=== PATIENT | male | born 1995 | race African-American/Black ===

== ENCOUNTER 2017-04-26 15:31 | Inpatient (IN) ==
[2017-04-26 16:19] LABS: BE -22.1 mmoll (-3.0-3.0); BLOOD TYPE ARTERIAL; METHB 1.3 % (0.0-1.5); O2(CT) 25.4 mL/dL (15.0-23.0); PO2(98.6) 117 mmHg (60-100); SAMPLE BLOOD; SAO2 98.6 % (95.0-100.0); THB 18.8 g/dL (11.5-17.4)
[2017-04-26 16:22] LABS: MANUAL DIFF NEEDED? NO
[2017-04-26] MEDS ORDERED: NS 1,000 ML IV ONE (16:27)
[2017-04-26] MEDS ORDERED: HUMULIN R (PARKWAY) IV ONE (16:27)
[2017-04-26] MEDS ORDERED: NS 2,000 ML ONE (16:28)
[2017-04-26 16:29] LABS: URINE CULTURE PL NEEDED? NO
[2017-04-26 16:32] LABS: BASO% 0.1 % (0.0-0.8); HEMATOCRIT 53.7 % (42.0-52.0); HEMOGLOBIN 18.7 g/dL (14.0-18.0); IMM GRAN% 0.7 % (0.0-0.5); LYMPH# 2.45 X1000 (1.2-3.4); LYMPH% 16.1 % (20.5-51.1); MCHC 34.8 g/dL (33-37); MCV 83.4 FL (81-99); MONO# 0.82 X1000 (0.11-0.59); MONO% 5.4 % (1.7-9.3); NEUT% 77.7 % (42.2-75.2); PLT 390 X1000 (130-400); RBC 6.44 XMIL (4.7-6.1)
[2017-04-26 16:41] LABS: BILIRUBIN URINE NEGATIVE (NEGATIVE); BLOOD URINE 3+ (NEGATIVE); CLARITY CLEAR (CLEAR); COLOR YELLOW; LEUKOCYTES URINE NEGATIVE (NEGATIVE); NITRITE URINE NEGATIVE (NEGATIVE); PROTEIN URINE 2+(100 mg/dL) mg/dL (NEGATIVE); UROBILINOGEN URINE NORMAL
[2017-04-26 16:43] LABS: DRAW SITE R RADIAL
[2017-04-26 16:44] LABS: ALLEN TEST YES; MODALITY ROOM AIR
[2017-04-26 16:46] LABS: PCO2(98.6) 15 mmHg (35-45); pH(98.6) 7.11 (7.35-7.45)
[2017-04-26 16:51] LABS: URINE CAST NONE SEEN /LPF; URINE CRYSTAL NONE SEEN /HPF; URINE EPITHELIAL CELLS <10 /HPF (<10); URINE SOURCE CLEAN CATCH; URINE WBC <10 /HPF (<10)
--- NOTE | 2017-04-26 17:32 | PROVIDER DOCUMENTATION ---
This chart was entered by So Cedillo Scribe, acting as scribe for Osorio Nelson MD. HPI-Abdominal Pain/GI Problem - General Chief Complaint: Abdominal Pain Stated Complaint: N/V Time Seen by Provider: 04/26/17 15:54 Source: patient Allergies/Adverse Reactions: Patient Allergies Allergy/AdvReac Type Severity Reaction Status Date / Time No Known Allergies Allergy Verified 04/26/17 15:40 Home Medications: Home Medication List Medication Instructions Recorded Confirmed Last Taken Type NK [No Home Medications] 04/26/17 04/26/17 Unknown History - History of Present Illness-ABD Nature of Presenting Problems: Pt is 21 y/o M presents to the ED with abdominal pain with N and V. Pt states symptoms have been present for 5 days. Pt states pain started in the upper abdomen then moved to mid abdomen and then stopped in the lower abdomen. Pt denies D. Pt states last BM was 2 days ago. Abdominal Pain Onset Location: reports: RLQ, LLQ Quality of Pain: reports: aching Severity in ED: reports: moderate Onset/Duration: reports: 5 days ago Timing: reports: still present Activities at Onset: reports: light activity Exposure to sick contacts?: No Modifying Factors: improves with: nothing Associated Symptoms: reports: nausea, vomiting. denies: anxiety, arm pain, back /neck pain, chest pain, constipation, cough, diaphoresis, diarrhea, dizziness, EENT symptoms, fatigue, fever/chills, genitourinary problems, headaches, heartburn, joint pain, loss of appetite, malaise, muscle aches, sinus congestion /drainage, rash, seizure, shortness of breath, sensory/motor loss, pain with inspiration, swelling/mass in abdomen, syncope, weakness, trouble walking Last BM: 2 days ago Dark Stools Present?: reports: none noticed Rectal Bleeding: reports: none Emesis Description: reports: clear Bruising or Bleeding Gums?: No Similar Symptoms Previously?: Yes Recently seen or treated by another doctor?: No Review of Systems - Adult - REVIEW OF SYSTEMS - ADULT Constitutional: reports: no symptoms reported Eyes: reports: no symptoms reported Ears, Nose, Mouth & Throat: reports: no symptoms reported Cardiovascular: reports: no symptoms reported Respiratory: reports: no symptoms reported Gastrointestinal: reports: abdominal pain (RLQ and LLQ), nausea, vomiting. denies: diarrhea Genitourinary: reports: no symptoms reported Musculoskeletal: reports: no symptoms reported Integumentary: reports: no symptoms reported Neurological: reports: no symptoms reported Psychiatric: reports: no symptoms reported Endocrine: reports: no symptoms reported Hematologic/Lymphatic: reports: no symptoms reported Allergic/Immunologic: reports: no symptoms reported All Other Systems: Reviewed and Negative Past History - Adult - PAST MEDICAL HISTORY-ADULT Review of Records: reports: Nursing Assessment Review, Medications Reviewed, Social history reviewed & non-contributory. Major Childhood Illnesses: reports: denies history Cardiovascular: reports: denies history Respiratory: reports: asthma Gastrointestinal: reports: denies history Obstetrical/Gynecological: reports: denies history Genitourinary: reports: denies history Musculoskeletal: reports: denies history Neurological: reports: denies history Endocrine/Immune: reports: denies history Other Conditions: reports: denies history - PRIOR SURGERIES/PROCEDURES Surgical/Procedure History: reports: reviewed, not pertinent - IMMUNIZATION STATUS Childhood Immunizations: See Nurse Assessment Flu Vaccine: See Nurse Assessment - FAMILY HISTORY Family History: reviewed, not pertinent - SOCIAL HISTORY Smoking: denies Substance Use: denies Living Situation: family Physical Exam-General - PHYSICAL EXAM-ADULT Initial Vital Signs Reviewed: Yes - CONSTITUTIONAL General Appearance: alert, mild distress - EYES Eyes: PERRL/EOMI, pink conjunctivae - HEAD, EARS, NOSE, MOUTH & THROAT HENMT: normocephalic/atraumatic, other (dry mucous membranes). negative: moist mucous membranes - NECK Neck: non-tender, full range of motion, supple, normal inspection - RESPIRATORY Respiratory: chest non-tender, lungs clear, normal breath sounds - CARDIOVASCULAR Cardiovascular: normal peripheral pulses, tachycardia - GASTROINTESTINAL (ABDOMEN) Abdominal Exam: normal bowel sounds, non tender, soft - LYMPHATIC Lymphatic: no adenopathy - MUSCULOSKELETAL Back Exam: normal inspection, no CVA tenderness, no vertebral tenderness Extremity: normal range of motion, non-tender - SKIN Integumentary: normal color, normal turgor, warm/dry - NEUROLOGIC Neurologic: grossly normal - PSYCHIATRIC Psych/Mental Status: normal mood/affect, oriented x 3 Progress - PLAN OF CARE/RESULTS Progress/Plan/Lab Results: Vital Signs - 8 hr 04/26/17 15:37 04/26/17 15:43 Temperature 97.2 F L Pulse Rate 143 H Pulse Rate [Sitting] 146 H Pulse Rate [Supine] 139 H Respiratory Rate 22 Blood Pressure 153/87 Blood Pressure [Supine] 151/94 O2 Sat by Pulse Oximetry 97 Orders Category Date Time Status Saline Loc DIRECTED Care 04/26/17 15:50 Active NPO Diet 04/26/17 15:50 Active ABG [RESP] Routine Lab 04/26/17 15:50 Ordered AMYLASE [CHEM] Stat Lab 04/26/17 15:50 Ordered CBC WITH ELECTRONIC DIFF [HEME] Stat Lab 04/26/17 15:50 Ordered COMPREHENSIVE METABOLIC PANEL [CHEM] Stat Lab 04/26/17 15:50 Ordered LIPASE [CHEM] Stat Lab 04/26/17 15:[address] W/POSS RFLX CULT [URINALYSIS] Stat Lab 04/26/17 15:50 Uncollected Result Diagrams: 04/26/17 16:16 - CONSULTS/PCP/HOSPITALIST Notification #1 *Consult/PCP/Hospitalist*: Dr. El Time Discussed: 16:25 Reason/Comments: Dr. Nelson consults with Dr. El about admit of Pt Consult Disposition: Admit Departure - Departure Date of Disposition Decision: 04/26/17 Time of Disposition Decision: 16:25 DIAGNOSIS: Diabetes mellitus, new onset DKA (diabetic ketoacidoses) Qualifiers: Diabetes mellitus type: other specified (including MATTHIEU) Diabetes mellitus complication detail: without coma Qualified Code(s): E13.10 - Other specified diabetes mellitus with ketoacidosis without coma Disposition: ADMITTED INPATIENT 09 Certified Medical Emergency: Emergent Condition: Stable Referrals and Follow-Ups: Me César`jeff Brown DO [Primary Care Provider] - - Critical Care Note This patient required my direct & personal management of CC.: No This chart was documented by the indicated scribe, (So Cedillo Scribe) and accurately reflects the services I performed and decisions made by me, Osorio Nelson MD, as attested by the provider's signature.
[2017-04-26 17:34] LABS: ALBUMIN 4.9 g/dL (3.5-5.0); CALCIUM 9.4 mg/dL (8.8-10.2); TOTAL BILIRUBIN 0.3 mg/dL (0.20-1.00); TOTAL PROTEIN 9.2 g/dL (6.3-8.3)
[2017-04-26] MEDS ORDERED: TYLENOL PO PRN (17:58)
[2017-04-26] MEDS ORDERED: MAGNESIUM SULFATE 2 GM/S.W.I. 2 GM/50 ML IVPB IV PRN (18:01)
[2017-04-26] MEDS ORDERED: SODIUM PHOSPHATE 30 MMOL in D5W 250 ML IV PRN (18:01)
[2017-04-26 18:21] LABS: HEMOGLOBIN A1C 11.6 % (4.8-6.0)
[2017-04-26] MEDS: NS 1,000 ML IV SCH ×3 (18:21→21:18)
[2017-04-26] MEDS: HUMULIN R 100 UNIT in NS 99 ML IV SCH (18:50)
[2017-04-26 21:13] LABS: BE -20.6 mmoll (-3.0-3.0); BLOOD TYPE ARTERIAL; DRAW SITE L RADIAL; METHB 1.1 % (0.0-1.5); O2(CT) 21.5 mL/dL (15.0-23.0); PO2(98.6) 114 mmHg (60-100); SAMPLE BLOOD; SAO2 98.9 % (95.0-100.0); THB 15.8 g/dL (11.5-17.4)
[2017-04-26] MEDS ORDERED: D50W SYRINGE IV PRN (21:13)
[2017-04-26] MEDS: ZOFRAN IV PRN (21:17)
[2017-04-26 21:49] LABS: AGAP 29; BUN 12 mg/dL (8-22); CHLORIDE 104 mmol/L (98-107); COSMO 291; MAGNESIUM 2.2 mg/dL (1.5-2.7); POTASSIUM 4.5 mmol/L (3.5-5.1); SODIUM 139 mmol/L (136-145); TCO2 6 mmol/L (25-35)
[2017-04-26] MEDS: POTASSIUM CHLORIDE 20 MEQ/SWI 20 MEQ/100 ML IVPB IV PRN (22:09)
[2017-04-26 22:11] LABS: ALLEN TEST YES; MODALITY ROOM AIR; PCO2(98.6) 17 mmHg (35-45); pH(98.6) 7.15 (7.35-7.45)
[2017-04-27 00:49] LABS: BLOOD TYPE ARTERIAL; DRAW SITE L RADIAL; METHB 1.3 % (0.0-1.5); O2(CT) 22.9 mL/dL (15.0-23.0); PO2(98.6) 118 mmHg (60-100); SAMPLE BLOOD; SAO2 98.7 % (95.0-100.0); THB 16.9 g/dL (11.5-17.4)
[2017-04-27 00:52] LABS: ALLEN TEST YES; MODALITY ROOM AIR; PCO2(98.6) 19 mmHg (35-45); pH(98.6) 7.15 (7.35-7.45)
[2017-04-27 02:14] LABS: AGAP 27; BUN 10 mg/dL (8-22); CALCIUM 8.3 mg/dL (8.8-10.2); CHLORIDE 104 mmol/L (98-107); COSMO 287; MAGNESIUM 2.3 mg/dL (1.5-2.7); POTASSIUM 4.3 mmol/L (3.5-5.1); SODIUM 139 mmol/L (136-145); TCO2 8 mmol/L (25-35)
[2017-04-27] MEDS: POTASSIUM CHLORIDE 20 MEQ/SWI 20 MEQ/100 ML IVPB IV PRN ×2 (03:10→23:00)
[2017-04-27 04:49] LABS: BLOOD TYPE ARTERIAL; DRAW SITE R RADIAL; METHB 1.2 % (0.0-1.5); O2(CT) 22.7 mL/dL (15.0-23.0); PCO2(98.6) 22 mmHg (35-45); PO2(98.6) 123 mmHg (60-100); SAMPLE BLOOD; SAO2 98.8 % (95.0-100.0); THB 16.7 g/dL (11.5-17.4)
[2017-04-27 04:56] LABS: ALLEN TEST YES; MODALITY ROOM AIR; pH(98.6) 7.18 (7.35-7.45)
[2017-04-27] MEDS: NS 1,000 ML IV SCH ×3 (05:54→21:27)
[2017-04-27] MEDS: ZOFRAN IV PRN ×2 (06:46→21:20)
[2017-04-27 07:35] LABS: AGAP 26; BUN 9 mg/dL (8-22); CHLORIDE 106 mmol/L (98-107); COSMO 290; MAGNESIUM 2.2 mg/dL (1.5-2.7); POTASSIUM 4.3 mmol/L (3.5-5.1); SODIUM 141 mmol/L (136-145); TCO2 9 mmol/L (25-35)
--- NOTE | 2017-04-27 08:34 | PROGRESS NOTE ---
DATE: 04/27/2017 SUBJECTIVE: The patient notes that he actually slept better last night. Notes that he felt a little bit better this morning than he was yesterday. PHYSICAL EXAMINATION: Vital Signs: Temperature 98, pulse 94, respiratory rate 17, BP 141/68, saturation 97% on room air. General: Patient is awake, alert. He is in no respiratory distress. Pleasant to talk with. Neck: Supple. CV: Regular rate. Chest: Clear. Abdomen: Soft. Extremities: Moves all extremities. Neurologic: No changes. LABS: PH 7.18. Carbon dioxide is 8 which is slightly improved from his 6 when he was admitted to the hospital. Glucose is down to 278. ASSESSMENT: 1. Diabetic ketoacidosis with a new onset diabetic. 2. Nausea and vomiting. 3. Leukocytosis. PLAN: We will continue insulin drip. Continue to follow. Keep him NPO. Further orders as needed. TIME SPENT: Forty minutes were spent in total care. cc: Carter El MD
[2017-04-27 09:37] LABS: AGAP 24; BUN 10 mg/dL (8-22); CALCIUM 8.8 mg/dL (8.8-10.2); CHLORIDE 105 mmol/L (98-107); COSMO 289; MAGNESIUM 2.2 mg/dL (1.5-2.7); POTASSIUM 4.1 mmol/L (3.5-5.1); SODIUM 140 mmol/L (136-145); TCO2 11 mmol/L (25-35)
[2017-04-27 12:06] LABS: BLOOD TYPE ARTERIAL; DRAW SITE R RADIAL; METHB 1.5 % (0.0-1.5); O2(CT) 21.5 mL/dL (15.0-23.0); PCO2(98.6) 25 mmHg (35-45); PO2(98.6) 106 mmHg (60-100); SAMPLE BLOOD; SAO2 98.2 % (95.0-100.0); pH(98.6) 7.21 (7.35-7.45)
[2017-04-27 12:10] LABS: MODALITY ROOM AIR
[2017-04-27 12:11] LABS: ALLEN TEST YES
[2017-04-27 13:30] LABS: AGAP 21; BUN 9 mg/dL (8-22); CHLORIDE 106 mmol/L (98-107); COSMO 287; MAGNESIUM 2.2 mg/dL (1.5-2.7); POTASSIUM 3.9 mmol/L (3.5-5.1); SODIUM 140 mmol/L (136-145); TCO2 13 mmol/L (25-35)
[2017-04-27 16:17] LABS: BE -16.3 mmoll (-3.0-3.0); BLOOD TYPE ARTERIAL; DRAW SITE R RADIAL; METHB 1.5 % (0.0-1.5); O2(CT) 20.8 mL/dL (15.0-23.0); PCO2(98.6) 24 mmHg (35-45); PO2(98.6) 97 mmHg (60-100); SAMPLE BLOOD; SAO2 98.1 % (95.0-100.0); THB 15.5 g/dL (11.5-17.4); pH(98.6) 7.21 (7.35-7.45)
[2017-04-27 16:21] LABS: ALLEN TEST YES; MODALITY ROOM AIR
[2017-04-27 18:29] LABS: AGAP 24; BUN 9 mg/dL (8-22); CALCIUM 9.3 mg/dL (8.8-10.2); CHLORIDE 101 mmol/L (98-107); COSMO 281; MAGNESIUM 2.1 mg/dL (1.5-2.7); POTASSIUM 3.6 mmol/L (3.5-5.1); SODIUM 137 mmol/L (136-145); TCO2 13 mmol/L (25-35)
[2017-04-27] MEDS: HUMULIN R 100 UNIT in NS 99 ML IV SCH (19:00)
--- NOTE | 2017-04-27 19:31 | HISTORY AND PHYSICAL ---
CHIEF COMPLAINT: Right lower quadrant pain with nausea and vomiting. HISTORY OF PRESENT ILLNESS: This is a 21-year-old gentleman who presented to the emergency room complaining of right lower quadrant pain, nausea and vomiting. He denied any fever or chills, diarrhea or constipation. He was found to have a white count of 15.2 with a glucose of 337 and a hemoglobin A1c of 11.6. He was given a liter of saline bolus, 10 units of insulin IV. He was started on an insulin drip per DKA protocol and admitted to ICU for further evaluation and treatment. PAST MEDICAL HISTORY: Asthma. PAST SURGICAL HISTORY: Denies. SOCIAL HISTORY: Denies alcohol, tobacco, or illicit drug use. ALLERGIES: No known drug allergies. HOME MEDICATIONS: None. REVIEW OF SYSTEMS: A 14-point review of systems is discussed with the patient with pertinent positives stated in HPI. He denied chest pain, palpitations, dizziness, syncope, shortness of breath, PND, orthopnea, diarrhea, constipation, black or bloody vomitus, black or bloody stools, hematuria, dysuria, frequency, urgency. PHYSICAL EXAMINATION: GENERAL: This is a 21-year-old male who is sitting in the bed in no distress. VITAL SIGNS: Blood pressure is 142/68 with a heart rate of 92, respirations are 17, temperature is 98.7 degrees with oxygen saturations of 98-100%. HEENT: Head is normocephalic, atraumatic. Pupils are equal, round, react to light. EOMs are intact. Sclerae are anicteric. Mucous membranes are dry. NECK: Supple. Trachea midline. CARDIOVASCULAR: Regular rate and rhythm. S1 and S2 appreciated. PULMONARY: Breath sounds are clear with no increased work of breathing noted. GASTROINTESTINAL: Abdomen is soft, nontender, nondistended with bowel sounds in all 4 quadrants. BACK: No CVAT. No spine tenderness. MUSCULOSKELETAL: Good range of motion of joints. EXTREMITIES: No clubbing, cyanosis, or edema. Calves are nontender. Pulses are palpable x4. NEUROLOGIC: He is alert and oriented x3 with cranial nerves 2-12 grossly intact. DIAGNOSTICS: WBC is 15.2 with hemoglobin 18.7, hematocrit 53.7, and platelets of 390,000. Sodium is 139, potassium 4.5, CO2 is 6 with a BUN of 12, creatinine 1.3 and a glucose of 337. Hemoglobin A1c is 11.6. ASSESSMENT AND PLAN: 1. Diabetic ketoacidosis, new onset diabetes. 2. Nausea and vomiting. 3. Leukocytosis. Patient will be admitted to ICU, placed on DKA protocol. Blood cultures were obtained. Will give him sips of clear liquids and ice chips. Continue to follow. Further treatments pending hospital course. Dictated by YARITZA Damian for Carter El MD cc: YARITZA Damian MD
[2017-04-27 21:06] LABS: BE -13.1 mmoll (-3.0-3.0); BLOOD TYPE ARTERIAL; DRAW SITE L RADIAL; METHB 1.5 % (0.0-1.5); O2(CT) 20.7 mL/dL (15.0-23.0); PCO2(98.6) 25 mmHg (35-45); PO2(98.6) 95 mmHg (60-100); SAMPLE BLOOD; SAO2 98.2 % (95.0-100.0); THB 15.4 g/dL (11.5-17.4); pH(98.6) 7.28 (7.35-7.45)
[2017-04-27 22:01] LABS: AGAP 23; BUN 9 mg/dL (8-22); CALCIUM 9.5 mg/dL (8.8-10.2); CHLORIDE 101 mmol/L (98-107); COSMO 284; POTASSIUM 3.6 mmol/L (3.5-5.1); SODIUM 136 mmol/L (136-145); TCO2 12 mmol/L (25-35)
[2017-04-27 22:31] LABS: ALLEN TEST YES; MODALITY ROOM AIR
[2017-04-28 01:09] LABS: BE -12.6 mmoll (-3.0-3.0); BLOOD TYPE ARTERIAL; DRAW SITE L RADIAL; METHB 1.3 % (0.0-1.5); O2(CT) 20.8 mL/dL (15.0-23.0); PCO2(98.6) 25 mmHg (35-45); PO2(98.6) 76 mmHg (60-100); SAMPLE BLOOD; SAO2 97.6 % (95.0-100.0); THB 15.6 g/dL (11.5-17.4); pH(98.6) 7.29 (7.35-7.45)
[2017-04-28 01:11] LABS: ALLEN TEST YES; MODALITY ROOM AIR
[2017-04-28 02:36] LABS: AGAP 23; BUN 8 mg/dL (8-22); CALCIUM 9.2 mg/dL (8.8-10.2); CHLORIDE 100 mmol/L (98-107); COSMO 278; POTASSIUM 3.8 mmol/L (3.5-5.1); SODIUM 135 mmol/L (136-145); TCO2 13 mmol/L (25-35)
[2017-04-28] MEDS: POTASSIUM CHLORIDE 20 MEQ/SWI 20 MEQ/100 ML IVPB IV PRN ×6 (02:45→23:00)
[2017-04-28] MEDS: ZOFRAN IV PRN ×3 (03:00→19:35)
[2017-04-28 05:11] LABS: BE -13.1 mmoll (-3.0-3.0); BLOOD TYPE ARTERIAL; DRAW SITE L RADIAL; METHB 1.2 % (0.0-1.5); O2(CT) 20.8 mL/dL (15.0-23.0); PCO2(98.6) 26 mmHg (35-45); PO2(98.6) 99 mmHg (60-100); SAMPLE BLOOD; SAO2 98.8 % (95.0-100.0); THB 15.4 g/dL (11.5-17.4); pH(98.6) 7.27 (7.35-7.45)
[2017-04-28 05:13] LABS: ALLEN TEST YES; MODALITY ROOM AIR
[2017-04-28] MEDS: NS 1,000 ML IV SCH ×3 (05:55→23:10)
[2017-04-28 06:05] LABS: AGAP 21; BUN 8 mg/dL (8-22); CALCIUM 9.3 mg/dL (8.8-10.2); CHLORIDE 99 mmol/L (98-107); COSMO 274; MAGNESIUM 1.9 mg/dL (1.5-2.7); POTASSIUM 3.5 mmol/L (3.5-5.1); SODIUM 133 mmol/L (136-145); TCO2 14 mmol/L (25-35)
--- NOTE | 2017-04-28 08:33 | PROGRESS NOTE ---
DATE: 04/28/2017 SUBJECTIVE: The patient has episodes of nausea after attempting to drink yesterday. He notes that he is feeling better this morning, although still slightly nauseated. Blood sugars have remained relatively stable in the 200s. His pH on his ABG is still 7.27. OBJECTIVE: Vital Signs: Temperature 97, pulse 90, respiratory 18, BP 140/86, satting 99% on room air. General: Patient is awake, alert. He is in no respiratory distress. He is lying in the bed, still appears nauseated. HEENT: Normocephalic, atraumatic. Neck: Supple. CV: Regular rate. Chest: Clear. Abdomen: Soft, obese. Extremities: Moves all extremities. Neurologic: No changes. Skin: Warm and dry. No rashes. LABS: The pH is improved at 7.27. Sodium 135. Carbon dioxide has continued to improve, currently is 14. Glucose remains around 230. ASSESSMENT: Diabetic ketoacidosis. Will continue on insulin drip. His blood cultures have been negative. We will check a chest x-ray today for completeness. He is still moderately acidotic; however, is improving. His carbon dioxide was actually 6 on admission. We will continue to keep on nothing by mouth until around 16 or 18. Will allow ice chips on an as-needed basis. Further orders as needed. cc: Carter El MD
[2017-04-28 08:56] LABS: AGAP 22; BUN 8 mg/dL (8-22); CHLORIDE 102 mmol/L (98-107); COSMO 281; MAGNESIUM 1.9 mg/dL (1.5-2.7); POTASSIUM 3.7 mmol/L (3.5-5.1); SODIUM 137 mmol/L (136-145); TCO2 13 mmol/L (25-35)
[2017-04-28 09:32] LABS: BE -12.8 mmoll (-3.0-3.0); BLOOD TYPE ARTERIAL; DRAW SITE R RADIAL; METHB 1.4 % (0.0-1.5); O2(CT) 20.5 mL/dL (15.0-23.0); PCO2(98.6) 27 mmHg (35-45); PO2(98.6) 101 mmHg (60-100); SAMPLE BLOOD; SAO2 98.3 % (95.0-100.0); THB 15.2 g/dL (11.5-17.4); pH(98.6) 7.27 (7.35-7.45)
[2017-04-28 09:35] LABS: ALLEN TEST YES
[2017-04-28 12:24] LABS: BE -13.4 mmoll (-3.0-3.0); BLOOD TYPE ARTERIAL; DRAW SITE L RADIAL; METHB 1.2 % (0.0-1.5); O2(CT) 20.6 mL/dL (15.0-23.0); PCO2(98.6) 24 mmHg (35-45); PO2(98.6) 114 mmHg (60-100); SAMPLE BLOOD; SAO2 98.6 % (95.0-100.0); THB 15.2 g/dL (11.5-17.4); pH(98.6) 7.28 (7.35-7.45)
[2017-04-28 12:28] LABS: ALLEN TEST YES; MODALITY ROOM AIR
[2017-04-28 12:37] LABS: MODALITY ROOM AIR
[2017-04-28 14:33] LABS: AGAP 24; BUN 8 mg/dL (8-22); CHLORIDE 104 mmol/L (98-107); COSMO 289; MAGNESIUM 1.9 mg/dL (1.5-2.7); POTASSIUM 3.4 mmol/L (3.5-5.1); SODIUM 141 mmol/L (136-145); TCO2 13 mmol/L (25-35)
[2017-04-28 16:40] LABS: BE -13.2 mmoll (-3.0-3.0); BLOOD TYPE ARTERIAL; DRAW SITE L RADIAL; METHB 1.5 % (0.0-1.5); O2(CT) 20.4 mL/dL (15.0-23.0); PCO2(98.6) 26 mmHg (35-45); PO2(98.6) 98 mmHg (60-100); SAMPLE BLOOD; SAO2 98.1 % (95.0-100.0); THB 15.2 g/dL (11.5-17.4); pH(98.6) 7.27 (7.35-7.45)
[2017-04-28 16:43] LABS: ALLEN TEST YES; MODALITY ROOM AIR
[2017-04-28 18:26] LABS: AGAP 24; BUN 8 mg/dL (8-22); CALCIUM 8.9 mg/dL (8.8-10.2); CHLORIDE 106 mmol/L (98-107); COSMO 291; MAGNESIUM 1.9 mg/dL (1.5-2.7); POTASSIUM 3.7 mmol/L (3.5-5.1); SODIUM 143 mmol/L (136-145); TCO2 13 mmol/L (25-35)
[2017-04-28] MEDS: ROCEPHIN 1 GM/NS 1 GM/50 ML IVPB IV SCH (20:39)
[2017-04-28] MEDS: HUMULIN R 100 UNIT in NS 99 ML IV SCH (22:00)
[2017-04-28] MEDS: D5 1/2 NS 1,000 ML IV PRN (22:00)
[2017-04-28 22:28] LABS: MAGNESIUM 1.9 mg/dL (1.5-2.7)
[2017-04-28 22:52] LABS: AGAP 25; ALBUMIN 4.1 g/dL (3.5-5.0); ALKALINE PHOSPHATASE 135 U/L (32-122); BUN 7 mg/dL (8-22); CALCIUM 8.7 mg/dL (8.8-10.2); CHLORIDE 104 mmol/L (98-107); COSMO 287; GOT 26 U/L (10-34); GPT 21 U/L (10-44); POTASSIUM 3.6 mmol/L (3.5-5.1); SODIUM 141 mmol/L (136-145); TCO2 12 mmol/L (25-35); TOTAL PROTEIN 7.3 g/dL (6.3-8.3)
[2017-04-29 01:57] LABS: AGAP 24; BUN 7 mg/dL (8-22); CALCIUM 9.1 mg/dL (8.8-10.2); CHLORIDE 105 mmol/L (98-107); COSMO 291; MAGNESIUM 1.9 mg/dL (1.5-2.7); POTASSIUM 3.7 mmol/L (3.5-5.1); SODIUM 142 mmol/L (136-145); TCO2 13 mmol/L (25-35)
[2017-04-29] MEDS: POTASSIUM CHLORIDE 20 MEQ/SWI 20 MEQ/100 ML IVPB IV PRN ×4 (02:00→22:12)
[2017-04-29] MEDS: ZOFRAN IV PRN ×2 (02:30→08:58)
[2017-04-29 05:51] LABS: MANUAL DIFF NEEDED? NO
[2017-04-29 06:17] LABS: BASO% 0.2 % (0.0-0.8); EOS# 0.11 X1000 (0.0-0.7); EOS% 0.9 % (0.0-10.0); HEMATOCRIT 42.4 % (42.0-52.0); HEMOGLOBIN 14.3 g/dL (14.0-18.0); IMM GRAN# 0.04 X1000 (0.0-0.04); IMM GRAN% 0.3 % (0.0-0.5); LYMPH# 3.15 X1000 (1.2-3.4); LYMPH% 25.4 % (20.5-51.1); MCH 28.8 PG (27-31); MCHC 33.7 g/dL (33-37); MCV 85.3 FL (81-99); MONO# 1.24 X1000 (0.11-0.59); MPV 12.4 FL (7.4-10.4); NEUT% 63.2 % (42.2-75.2); PLT 249 X1000 (130-400); RBC 4.97 XMIL (4.7-6.1)
[2017-04-29 06:23] LABS: AGAP 22; BUN 7 mg/dL (8-22); CHLORIDE 103 mmol/L (98-107); COSMO 284; MAGNESIUM 1.9 mg/dL (1.5-2.7); POTASSIUM 3.3 mmol/L (3.5-5.1); SODIUM 138 mmol/L (136-145); TCO2 13 mmol/L (25-35)
[2017-04-29] MEDS: NS 1,000 ML IV SCH ×3 (06:29→21:28)
[2017-04-29] MEDS ORDERED: K-PHOS PO ONE (06:38)
--- NOTE | 2017-04-29 07:22 | Diag Imaging Result Doc PS360 ---
EXAM: CHEST-2 VIEWS HISTORY: hypoxia TECHNIQUE: COMPARISON: None. FINDINGS: The lungs are well expanded. The heart is not enlarged. The vessels are not distended. There are no infiltrates. No pleural effusions. IMPRESSION: No acute abnormality. Electronically signed by Hipolito Mcghee 04/29/2017 7:20 AM
--- NOTE | 2017-04-29 08:49 | PROGRESS NOTE ---
DATE: 04/29/2017 SUBJECTIVE: The patient states that he is feeling a little bit better. He is denying any abdominal pain. Currently denies any nausea or vomiting. Denies any fevers or chills. PHYSICAL EXAMINATION: Vital Signs: Temperature 98, pulse 86, respiratory rate 14, BP 160/72, saturation 98% on room air. General: Patient is awake, alert, oriented. He is currently in no respiratory distress. Speech is regular. Memory is intact. Neck: Supple. CV: Regular rate. Chest: Relatively clear. Abdomen: Soft. Extremities: Moves all extremities. Neurologic: No changes. Skin: Warm and dry. No rashes. LABS: Reviewed. WBC is 12 which is an improvement. Potassium 3.3, carbon dioxide 13, glucose 286. Acetone was positive yesterday, still moderate. ASSESSMENT: 1. Diabetic ketoacidosis with new onset diabetes with an A1c of 11.8. 2. Nausea and vomiting, resolved. 3. Abdominal pain, appears resolved. 4. Acute renal failure, resolved. Creatinine is now 1. 5. Hypokalemia. We will continue to replace. 6. Leukocytosis, improving. 7. Hypophosphatemia. We will replace. PLAN: As noted above, we will continue patient on insulin drip until his acidosis has resolved. Did start Rocephin as there is some question as to whether he has an infectious etiology. Further orders as needed. cc: Carter El MD
[2017-04-29 10:09] LABS: AGAP 22; BUN 7 mg/dL (8-22); CALCIUM 9.1 mg/dL (8.8-10.2); CHLORIDE 105 mmol/L (98-107); COSMO 291; POTASSIUM 3.6 mmol/L (3.5-5.1); SODIUM 142 mmol/L (136-145); TCO2 15 mmol/L (25-35)
[2017-04-29 14:12] LABS: AGAP 19; BUN 7 mg/dL (8-22); CHLORIDE 104 mmol/L (98-107); COSMO 284; POTASSIUM 3.3 mmol/L (3.5-5.1); SODIUM 139 mmol/L (136-145); TCO2 16 mmol/L (25-35)
[2017-04-29 17:27] LABS: AGAP 22; BUN 7 mg/dL (8-22); CALCIUM 8.9 mg/dL (8.8-10.2); CHLORIDE 103 mmol/L (98-107); COSMO 286; POTASSIUM 3.8 mmol/L (3.5-5.1); SODIUM 141 mmol/L (136-145); TCO2 16 mmol/L (25-35)
[2017-04-29] MEDS: ROCEPHIN 1 GM/NS 1 GM/50 ML IVPB IV SCH (19:45)
[2017-04-29 21:31] LABS: AGAP 24; BUN 7 mg/dL (8-22); CALCIUM 8.8 mg/dL (8.8-10.2); CHLORIDE 103 mmol/L (98-107); COSMO 287; MAGNESIUM 1.9 mg/dL (1.5-2.7); POTASSIUM 3.8 mmol/L (3.5-5.1); SODIUM 141 mmol/L (136-145); TCO2 15 mmol/L (25-35)
[2017-04-29] MEDS: HUMULIN R 100 UNIT in NS 99 ML IV SCH (22:12)
[2017-04-30] MEDS: ZOFRAN IV PRN (00:38)
[2017-04-30] MEDS: NS 1,000 ML IV SCH ×4 (01:11→13:31)
[2017-04-30 02:03] LABS: AGAP 21; BUN 6 mg/dL (8-22); CALCIUM 9.1 mg/dL (8.8-10.2); CHLORIDE 106 mmol/L (98-107); COSMO 290; MAGNESIUM 1.9 mg/dL (1.5-2.7); POTASSIUM 3.6 mmol/L (3.5-5.1); SODIUM 143 mmol/L (136-145); TCO2 16 mmol/L (25-35)
[2017-04-30] MEDS: POTASSIUM CHLORIDE 20 MEQ/SWI 20 MEQ/100 ML IVPB IV PRN ×4 (02:09→13:57)
[2017-04-30] MEDS: D5 1/2 NS 1,000 ML IV PRN (05:08)
[2017-04-30 06:19] LABS: AGAP 22; BUN 6 mg/dL (8-22); CALCIUM 9.1 mg/dL (8.8-10.2); CHLORIDE 105 mmol/L (98-107); COSMO 286; MAGNESIUM 1.9 mg/dL (1.5-2.7); POTASSIUM 3.8 mmol/L (3.5-5.1); SODIUM 141 mmol/L (136-145); TCO2 14 mmol/L (25-35)
[2017-04-30] MEDS ORDERED: LANTUS INSULIN (PARKWAY) SUBQ ONE (06:44)
[2017-04-30 10:26] LABS: AGAP 21; BUN 6 mg/dL (8-22); CALCIUM 8.9 mg/dL (8.8-10.2); CHLORIDE 104 mmol/L (98-107); COSMO 291; MAGNESIUM 1.9 mg/dL (1.5-2.7); POTASSIUM 3.7 mmol/L (3.5-5.1); SODIUM 140 mmol/L (136-145); TCO2 16 mmol/L (25-35)
[2017-04-30 13:49] LABS: AGAP 18; BUN 6 mg/dL (8-22); CALCIUM 8.6 mg/dL (8.8-10.2); CHLORIDE 102 mmol/L (98-107); COSMO 281; MAGNESIUM 1.7 mg/dL (1.5-2.7); POTASSIUM 3.6 mmol/L (3.5-5.1); SODIUM 137 mmol/L (136-145); TCO2 17 mmol/L (25-35)
--- NOTE | 2017-04-30 14:29 | PROGRESS NOTE ---
DATE: 04/30/2017 SUBJECTIVE: The patient states he is feeling a little better. He has no abdominal pain. No nausea or vomiting. He has tolerated Jell-O and other liquids well. He denied any fever or chills. OBJECTIVE: Vital Signs: Blood pressure is 135/65 with a heart rate of 90 and respirations are 20. Temperature is 97.3 degrees oral with room air saturations of 99%. Cardiovascular: Regular rate and rhythm. S1, S2 appreciated. Pulmonary: Breath sounds are clear with no increased work of breathing noted. Gastrointestinal: Abdomen is soft, nontender, nondistended with bowel sounds in all 4 quadrants. Extremities: No clubbing, cyanosis, or edema. Calves are nontender. Pulses are palpable x4. Neurologic: He is alert and oriented x3. LABORATORY DATA: Sodium is 140 with a potassium of 3.7. CO2 is 16 with anion gap of 21. BUN 6, creatinine 1 with a glucose of 355; looks like it is ranging 250-350. ASSESSMENT AND PLAN: 1. Diabetic ketoacidosis with new onset of diabetes with an A1c of 11.8. 2. Nausea and vomiting, resolved. 3. Abdominal pain, resolved. 4. Acute renal failure, resolved. 5. Creatinine is now 0.9. 6. Leukocytosis, improving. 7. Hypokalemia, hypophosphatemia. We will continue to replace. PLAN: We will continue with the current regimen. Blood sugars were down into the 180s during the night and per protocol. We will continue with IV hydration. We will advance his diet. Continue on an insulin drip until his acidosis is resolved. Of note, we did start Lantus insulin today and will monitor. Dictated by YARITZA Damian for Carter El MD cc: YARITZA Damian MD
[2017-04-30 17:54] LABS: AGAP 20; BUN 7 mg/dL (8-22); CALCIUM 8.4 mg/dL (8.8-10.2); CHLORIDE 100 mmol/L (98-107); COSMO 277; MAGNESIUM 2.2 mg/dL (1.5-2.7); POTASSIUM 3.3 mmol/L (3.5-5.1); SODIUM 136 mmol/L (136-145); TCO2 15 mmol/L (25-35)
[2017-04-30] MEDS: ROCEPHIN 1 GM/NS 1 GM/50 ML IVPB IV SCH (19:54)
[2017-04-30] MEDS ORDERED: LANTUS INSULIN (PARKWAY) SUBQ SCH (21:00)
[2017-04-30] MEDS: HUMULIN R DOSE (PARKWAY) SUBQ SCH (21:07)
[2017-05-01] MEDS: HUMULIN R DOSE (PARKWAY) SUBQ SCH ×3 (06:35→11:22)
[2017-05-01 08:20] LABS: HEMATOCRIT 41.9 % (42.0-52.0); HEMOGLOBIN 13.9 g/dL (14.0-18.0); MCH 28.4 PG (27-31); MCHC 33.2 g/dL (33-37); MCV 85.7 FL (81-99); MPV 12.5 FL (7.4-10.4); RBC 4.89 XMIL (4.7-6.1)
[2017-05-01 08:45] LABS: AGAP 23; ALBUMIN 3.9 g/dL (3.5-5.0); ALKALINE PHOSPHATASE 130 U/L (32-122); BUN 6 mg/dL (8-22); CALCIUM 8.6 mg/dL (8.8-10.2); CHLORIDE 99 mmol/L (98-107); COSMO 277; GOT 16 U/L (10-34); GPT 15 U/L (10-44); POTASSIUM 3.4 mmol/L (3.5-5.1); SODIUM 136 mmol/L (136-145); TCO2 14 mmol/L (25-35); TOTAL PROTEIN 6.9 g/dL (6.3-8.3)
[2017-05-01] MEDS ORDERED: LANTUS INSULIN (PARKWAY) SUBQ SCH (09:00)
[2017-05-01 11:30] VITALS: BP 136/63
[2017-05-01] MEDS ORDERED: ZOFRAN IV PRN (11:46)
[2017-05-01] MEDS ORDERED: NS 1,000 ML IV SCH (11:46)
[2017-05-01] MEDS ORDERED: DILAUDID IV PRN (11:46)
--- NOTE | 2017-05-01 20:31 | DISCHARGE SUMMARY ---
ADMISSION DATE: 04/27/2017 DISCHARGE DATE: 05/01/2017 DIAGNOSES: 1. Diabetic ketoacidosis and new onset diabetes. 2. Nausea and vomiting. 3. Leukocytosis. 4. Acute renal failure resolved. 5. Hypokalemia, hypophosphatemia resolved. HOSPITAL COURSE: Mr. Pelayo presented to the emergency room complaining of right lower quadrant pain with nausea and vomiting. He was found to be in DKA with a blood sugar of 630, having a sodium of 135, potassium of 5 and creatinine of 1.7. He did receive IV hydration. He was placed on insulin drip and followed by protocol. Electrolytes did normalize with his creatinine slowly returning to normal levels of 0.9 and 1. He had blood cultures drawn which revealed no growth after 48 hours. We did slowly advance his diet with him to transitioning to a diabetic diet 24 hours ago and tolerating this with no abdominal pain, nausea or vomiting. DISCHARGE PHYSICAL EXAMINATION: Cardiovascular: Regular rate and rhythm. S1, S2 appreciated. Pulmonary: Breath sounds are clear with no increased work of breathing noted. Gastrointestinal: Abdomen is soft, nontender, nondistended. Bowel sounds in all 4 quadrants. Extremities: No clubbing, cyanosis, or edema with calves nontender and pulses palpable x4. DISCHARGE MEDICATIONS: 1. Lantus insulin 12 units subcutaneous b.i.d. 2. He was given a prescription for a glucose meter and supplies. FOLLOWUP: He is to follow up with his primary care provider, Elvira Del Castillo in 1-2 weeks. He is also being given the number to [facility]. The patient is a student at [employer]. He has been encouraged to follow up at the [facility] at [employer] if he has trouble while at class or away from home. DISCHARGE DIET: Diabetic, as instructed by dietitian. DISPOSITION: He is being discharged home in stable condition with family members. TIME SPENT: This is a greater than 30 minute discharge. Dictated by YARITZA Damian for Carter El MD cc: YARITZA Damian MD
== END 2017-05-01 15:30 | disposition home or self-care (01) ==
LOC: P.ED 15:31 → P.ICU 15:32
PROVIDERS: ATTEND Family Medicine